=== PATIENT | male | born 1980 | race Two or more races ===

== ENCOUNTER 2023-02-26 15:21 | Emergency (ER) | payer MEDICAID, OTHER ==
[~2023-02-26] VITALS: Ht 177.8 cm; Wt 93.9 kg
[2023-02-26] MEDS ORDERED: ACETAMINOPHEN 500 MG TAB PO ONE (17:15)
[2023-02-26 18:43] LABS: COVID19 ANTIGEN SOFIA FIA POSITIVE (NEGATIVE); Rapid Strep A Screen-Throat Negative
[2023-02-26] MEDS ORDERED: IBUP-1455 PO (18:47)
[2023-02-26] MEDS ORDERED: ACET500T58 PO (18:47)
[2023-02-26 18:55] VITALS: BP 142/99; PULSE 81; RESP 17; TEMP 98.3; O2SAT 98
== END 2023-02-26 19:02 | disposition home or self-care (01) ==
LOC: ER 15:21
DX: U07.1 COVID-19 (principal)
CPT/HCPCS: 36415; 87070; 87426; 87880